=== PATIENT | female | born 1990 | race African-American/Black ===

== ENCOUNTER 2024-05-11 10:29 | Outpatient (CLI) | payer MEDICARE ==
[2024-05-11 11:05] LABS: Hematocrit 39.2 % (34.9-44.5); Hemoglobin 12.4 g/dL (12.0-15.5); Mean Corpuscular HGB CONC 31.6 g/dL (32.0-36.0); Mean Corpuscular Hemoglobin 27.7 pg (27.0-33.0); Mean Corpuscular Volume 87.7 fL (81.6-98.3); Platelet Count 230 10x3/uL (150-450); RBC Distribution Width 12.8 % (11.5-14.5); Red Blood Cell (RBC) Count 4.47 10x6/uL (3.90-5.03); White Blood Cell (WBC) Count 4.4 10x3/uL (3.5-10.5)
[2024-05-11 11:14] LABS: BHCG - Serum Negative (NEGATIVE); Pregs Control Background? CLEAR/WHITE (CLR/WHITE); Pregs Control Bar Appear? YES (CONTROL BAR)
[2024-05-11 11:23] LABS: Anion Gap 13 mmol/L (10-20); BUN (Urea Nitrogen) 9 mg/dL (7.0-18.7); Calc. Creatinine Clearance 0 mL/min (70-130); Calcium 9.5 mg/dL (7.8-10.44); Carbon Dioxide 24 mmol/L (22-29); Chloride 105 mmol/L (98-107); Estimated GFR 92; Glucose 93 mg/dL (70-105); Potassium 3.9 mmol/L (3.5-5.1); Sodium 138 mmol/L (136-145)
== END 2024-05-11 10:30 | disposition home or self-care (01) ==
LOC: CSHLAB 10:29
PROVIDERS: ATTEND Obstetrics & Gynecology
DX: Z01.812 Encounter for preprocedural laboratory examination (principal); N87.1 Moderate cervical dysplasia
CPT/HCPCS: 80048; 84703; 85027

== ENCOUNTER 2024-05-17 05:21 | Day surgery (SDC) | payer MEDICARE ==
[2024-05-11 10:58] VITALS: BMI 32.5
[2024-05-17] MEDS ORDERED: Lidocaine 2% PF 5 ML VIAL ONE ×2 (05:58→06:04)
[2024-05-17] MEDS ORDERED: PROPOFOL 20 ML ONE (06:04)
[2024-05-17] MEDS ORDERED: Dexamethasone 4 mg/ml Vial ONE (06:04)
[2024-05-17] MEDS ORDERED: Ondansetron PF 4 MG/2 ML Vial ONE (06:04)
[2024-05-17] MEDS ORDERED: Dexmedetomidine 200 MCG/2 ML VIAL ONE (06:18)
[2024-05-17] MEDS ORDERED: fentaNYL 50 mcg/mL 1 mL Vial ONE (06:20)
[2024-05-17] MEDS ORDERED: CEFAZOLIN 2 GM VIAL ONE (06:24)
[2024-05-17] MEDS ORDERED: Bupivacaine HCl 0.5%/Epinephrine 1:200,000/PF 30 ml Vial ONE (06:24)
[2024-05-17] MEDS ORDERED: Midazolam HCl 2 mg/2 ml Vial ONE (06:42)
[2024-05-17] MEDS ORDERED: metroNIDAZOLE 500 MG (100 mL) BAG ONE (06:48)
[2024-05-17] MEDS ORDERED: ePHEDrine Sulfate 50 MG/10 ML VIAL ONE (07:06)
[2024-05-17] MEDS ORDERED: Glycopyrrolate 0.2 MG/ML 5 ML SYRINGE ONE (07:26)
[2024-05-17] MEDS ORDERED: Ketorolac Tromethamine 30 MG (1 mL) VIAL ONE (07:51)
[2024-05-17] MEDS ORDERED: Ferric Subsulfate 8 ML TOPICAL SOLN ONE (08:41)
[2024-05-17] MEDS ORDERED: Potassium Iodide Solution 14 ML BOT ONE (08:41)
== END 2024-05-17 09:10 | disposition home or self-care (01) ==
LOC: CSHSDC 05:21
PROVIDERS: ATTEND Obstetrics & Gynecology
PROC: 0UBC8ZZ Excision of Cervix, Via Natural or Artificial Opening Endoscopic (ICD-10-PCS; principal; 2024-05-17)
DX: R87.613 High grade squamous intraepithelial lesion on cytologic smear of cervix (HGSIL) (principal); B97.7 Papillomavirus as the cause of diseases classified elsewhere; A59.9 Trichomoniasis, unspecified
CPT/HCPCS: 57522; J1100; J1885; J2250; J2405; J2704; J3010; 88305; 88342